=== PATIENT | female | born 1945 | race Caucasian/White ===

== ENCOUNTER 2019-09-30 19:30 | Outpatient (CLI) | payer MEDICARE, OTHER | END 2019-09-30 23:59 | disposition home or self-care (01) | LOC: D.MAMMO 19:30 | PROVIDERS: ATTEND Family Medicine | DX: Z12.31 Encounter for screening mammogram for malignant neoplasm of breast (principal) ==

== ENCOUNTER 2020-01-10 10:54 | Emergency (ER) | payer MEDICARE, OTHER ==
[~2020-01-10] VITALS: Ht 162.6 cm; Wt 75.0 kg
[2020-01-10 11:01] VITALS: Ht 162.6 cm; Wt 75.0 kg
[2020-01-10] MEDS ORDERED: RITALIN20 MG (11:04)
[2020-01-10] MEDS ORDERED: NAMENDA10 MG (11:04)
[2020-01-10] MEDS ORDERED: ARICEPT23 MG (11:04)
[2020-01-10] MEDS ORDERED: ZOLOFT50 MG (11:04)
[2020-01-10 13:57] VITALS: BP 148/93
== END 2020-01-10 13:57 | disposition home or self-care (01) ==
LOC: D.ER 10:54
DX: R10.9 Unspecified abdominal pain (principal); K59.00 Constipation, unspecified